=== PATIENT | female | born 1940 | race Caucasian/White ===

== ENCOUNTER → 2021-03-22 | Outpatient (CLI) | payer MEDICARE ==
--- NOTE | 2021-03-22 12:30 | REP ---
INDICATION: Assess stenosis TECHNIQUE: Carotid ultrasonography was performed bilaterally FINDINGS: Right: CCA systolic: 77.7 centimeters/second CCA diastolic: 9.4 centimeters/second ICA systolic: 67.8 centimeters/second ICA diastolic: 14.9 centimeters/second ICA CCA ratio: 0.87 Left: CCA systolic: 71.0 centimeters/second CCA diastolic: 12.1 centimeters/second ICA systolic: 81.9 centimeters/second ICA diastolic: 15.7 centimeters/second ICA CCA ratio: 1.15 Vertebral artery: Right: Antegrade flow left: Bidirectional Abnormal echogenic material seen along the carotid arterial queen some of which casts and acoustic shadow. IMPRESSION: 1. According to the SRU criteria there is less than 50% stenosis of the internal carotid artery bilaterally. This is secondary to both calcified and noncalcified atheromatous plaque formation. 2. Possible early left subclavian steal syndrome. <Electronically signed by Jean Pineda > 03/22/21 [id number]
== END ==
LOC: M RAD 11:26
PROVIDERS: ATTEND Surgery Vascular Surgery
DX: R55 Syncope and collapse (principal)